=== PATIENT | male | born 1970 | race Caucasian/White ===

== ENCOUNTER 2016-10-24 10:36 | Emergency (ER) | payer OTHER, BC ==
[2016-10-24] MEDS ORDERED: NACL 0.9% 1000 ML 1,000 ML IV ONE (14:15)
[2016-10-24] MEDS ORDERED: BOOSTRIX IM ONE (14:15)
[2016-10-24] MEDS ORDERED: MORPHINE IV ONE (14:16)
[2016-10-24] MEDS ORDERED: ZOFRAN IV ONE (14:16)
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
[2016-10-24 15:30] LABS: Anion Gap 18 mmol/L; BUN/Creatinine Ratio 14.44; Blood Urea Nitrogen 13 mg/dL (9-20); Carbon Dioxide 24 mmol/L (22-30); Chloride 104.3 mmol/L (98-107); Glucose 101 mg/dL (75-100); Sodium 142 mmol/L (137-145)
[2016-10-24 15:33] LABS: INR 1.05 (0.87-1.13); Partial Thromboplastin Time 33.1 Sec. (24.2-36.6)
[2016-10-24 15:34] LABS: Alanine Aminotransferase 70 units/L (7-56); Albumin 4.4 g/dL (3.9-5); Albumin/Globulin Ratio 1.6 %; Alkaline Phosphatase 91 units/L (35-129); Total Protein 7.2 g/dL (6.3-8.2)
[2016-10-24 15:40] LABS: Bilirubin,Direct < 0.2 mg/dL (0-0.2); Bilirubin,Indirect 0.2 mg/dL
[2016-10-24 15:49] LABS: Basophils % (Auto) 0.4 % (0.0-1.8); Eosinophils % (Auto) 5.4 % (0.0-4.3); Hematocrit 42.7 % (35.5-45.6); Hemoglobin 14.2 gm/dl (11.8-15.2); Mean Corpuscular HGB Conc 33 % (32-34); Mean Corpuscular Hemoglobin 29 pg (28-32); Mean Corpuscular Volume 88 fl (84-94); Platelet Count 174 K/mm3 (140-440); Red Blood Count 4.85 M/mm3 (3.65-5.03); Red Cell Distribution Width 14.1 % (13.2-15.2); White Blood Count 8.4 K/mm3 (4.5-11.0)
[2016-10-24] MEDS ORDERED: NACL ONE (16:03)
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
--- NOTE | 2016-10-24 16:38 | Cat Scan Report ---
Dictation of this study is covered in the CT chest, abdomen and pelvis. Please see separate report
[2016-10-24 16:57] LABS: Bilirubin,Urine NEG (Negative); Blood,Urine NEG (Negative); Ketones,Urine NEG (Negative); Leukocyte Esterase,Urine NEG (Negative); Mucus,Urine FEW /HPF; Nitrite,Urine NEG (Negative); Protein,Urine <15 mg/dL mg/dL (Negative); RBC,Urine < 1.0 /HPF (0.0-6.0); Urobilinogen,Urine < 2.0 mg/dL (<2.0); WBC,Urine < 1.0 /HPF (0.0-6.0)
[2016-10-24 17:40] VITALS: BP 169/96
== END 2016-10-24 17:36 | disposition home or self-care (01) ==
LOC: ED 10:36
DX: S16.1XXA Strain of muscle, fascia and tendon at neck level, initial encounter (principal); S20.312A Abrasion of left front wall of thorax, initial encounter; S20.212A Contusion of left front wall of thorax, initial encounter; R10.12 Left upper quadrant pain; J32.2 Chronic ethmoidal sinusitis; Z88.6 Allergy status to analgesic agent; Z88.0 Allergy status to penicillin; I10 Essential (primary) hypertension; V49.9XXA Car occupant (driver) (passenger) injured in unspecified traffic accident, initial encounter; Y93.89 Activity, other specified; Y99.8 Other external cause status; Y92.89 Other specified places as the place of occurrence of the external cause
CPT/HCPCS: 36415; 70450; 71260; 72125; 74177; 80048; 80074; 81001; 85025; 85610; 85730; 90471; 90715; 96361; 96374; 96375; 99284; J2270; J2405; J7030; Q9967